=== PATIENT | female | born 2000 | race Two or more races ===

== ENCOUNTER 2021-03-24 19:11 | Emergency (ER) | payer OTHER | END 2021-03-24 21:15 | disposition home or self-care (01) | LOC: MW.ED 19:11 | DX: S20.212A Contusion of left front wall of thorax, initial encounter (principal); S80.01XA Contusion of right knee, initial encounter; S80.02XA Contusion of left knee, initial encounter; W01.0XXA Fall on same level from slipping, tripping and stumbling without subsequent striking against object, initial encounter; Y99.0 Civilian activity done for income or pay | CPT/HCPCS: 71100-26-LT; 71100-LT; 73562-26-RT; 73562-RT; 99282; 99283-25 ==

== ENCOUNTER 2021-11-10 17:42 | Emergency (ER) | payer SELFPAY ==
[2021-11-10] MEDS ORDERED: Sodium Chloride 0.9% 1,000 ML IV ONE (18:16)
[2021-11-10] MEDS ORDERED: Acetaminophen 500 MG Tab PO ONE (18:16)
[2021-11-10] MEDS ORDERED: Ketorolac 30 MG/ML SDV IVPUSH ONE (18:26)
[2021-11-10] MEDS ORDERED: Ondansetron 4 MG/2 ML SDV IVPUSH ONE (18:26)
[2021-11-10 19:00] LABS: POTASSIUM,K 3.6 mmol/L (3.5-5.1)
[2021-11-10] MEDS ORDERED: Penicillin G Benzathine 1,200,000 Units/2 ML Syringe IM ONE (19:02)
[2021-11-10 19:04] LABS: CORONAVIRUS COVID-19 NAA NEGATIVE (NEGATIVE); INFLUENZA A NAA NEGATIVE (NEGATIVE); INFLUENZA B NAA NEGATIVE (NEGATIVE)
== END 2021-11-10 19:47 | disposition home or self-care (01) ==
LOC: MW.ED 17:42
DX: J02.0 Streptococcal pharyngitis (principal); Z20.822 Contact with and (suspected) exposure to COVID-19
CPT/HCPCS: 0240U; 36415; 80053; 83605; 85025; 87651; 96361; 96374; 96375; 99283; A9270; J1885; J2405; J7030

== ENCOUNTER 2022-11-16 05:40 | Emergency (ER) | payer SELFPAY ==
[2022-11-16] MEDS ORDERED: Acetaminophen 500 MG Tab PO ONE (06:54)
== END 2022-11-16 08:45 | disposition home or self-care (01) ==
LOC: MW.ED 05:40
DX: J02.0 Streptococcal pharyngitis (principal); U07.1 COVID-19
CPT/HCPCS: 87635; 87651; 99283; A9270; U0002

== ENCOUNTER 2023-03-13 11:24 | Emergency (ER) | payer OTHER ==
[2023-03-13] MEDS ORDERED: Ibuprofen 600 MG Tab PO ONE (12:33)
== END 2023-03-13 12:54 | disposition home or self-care (01) ==
LOC: MW.ED 11:24
DX: S97.112A Crushing injury of left great toe, initial encounter (principal); W23.0XXA Caught, crushed, jammed, or pinched between moving objects, initial encounter; Y99.0 Civilian activity done for income or pay
CPT/HCPCS: 73610; 73620; 99283; A9270

== ENCOUNTER 2023-08-05 18:07 | Emergency (ER) | payer OTHER ==
[2023-08-05] MEDS: oxyCODONE 5 MG Tab PO STA (20:22)
[2023-08-05] MEDS: Acetaminophen 500 MG Tab PO STA (20:22)
[2023-08-05] MEDS: Ibuprofen 800 MG Tab PO STA (20:22)
== END 2023-08-05 21:25 | disposition home or self-care (01) ==
LOC: MW.ED 18:07
DX: S92.314A Nondisplaced fracture of first metatarsal bone, right foot, initial encounter for closed fracture (principal); S92.324A Nondisplaced fracture of second metatarsal bone, right foot, initial encounter for closed fracture; Z75.8 Other problems related to medical facilities and other health care; W20.8XXA Other cause of strike by thrown, projected or falling object, initial encounter; Y99.0 Civilian activity done for income or pay
CPT/HCPCS: 29515; 73630; 99283; A9270

== ENCOUNTER 2024-01-20 22:34 | Emergency (ER) | payer SELFPAY ==
[2024-01-21 00:01] LABS: APPEARANCE,URINE CLEAR; BILIRUBIN,URINE NEGATIVE (NEGATIVE); COLOR,URINE YELLOW; GLUCOSE,URINE NEGATIVE (NEGATIVE); KETONES,URINE NEGATIVE (NEGATIVE); LEUKOCYTE ESTERASE,URINE SMALL (NEGATIVE); NITRITE,URINE NEGATIVE (NEGATIVE); OCCULT BLOOD,URINE NEGATIVE (NEGATIVE); PROTEIN,URINE NEGATIVE (NEGATIVE); UROBILINOGEN,URINE 0.2 EU/dL (<2.0)
[2024-01-21 00:15] LABS: BACTERIA,URINE FEW (NEGATIVE); EPITHELIAL CELLS,URINE RARE (NONE-FEW); RBC,URINE 0-2 (0-2/HPF); WBC,URINE NONE SEEN (0-5/HPF)
[2024-01-21] MEDS: Ketorolac 30 MG/ML SDV IM ONE (00:40)
[2024-01-21] MEDS: Ondansetron 4 MG Tab.DIS PO ONE (00:42)
== END 2024-01-21 02:30 | disposition home or self-care (01) ==
LOC: MW.ED 22:34
DX: K59.00 Constipation, unspecified (principal); Z86.16 Personal history of COVID-19
CPT/HCPCS: 74018; 81001; 81025; 87086; 96372; 99284; A9270; J1885

== ENCOUNTER → 2024-08-28 | Day surgery (SDC) | payer BC ==
[~2024-08-28] MED LIST: Lidocaine 2% 11 ML Jelly Filled Syringe ONE; Ondansetron 4 MG/2 ML SDV IVPUSH PRN; Propofol 200 MG/20 ML SDV ONE; Ropivacaine 0.5% 5 MG/ML 30 ML SDV ONE; dexmedeTOMIDine HCl 200 MCG/2 ML SDV ONE; fentaNYL 250 MCG/5 ML SDV ONE; propofoL 500 MG/50 ML 50 ML ONE
[2024-08-28 10:14] LABS: BASOPHILS ABSOLUTE AUTO 0.04 K/uL (0.00-0.20); BASOPHILS PERCENT AUTO 0.7 % (0.0-1.0); EOSINOPHILS ABSOLUTE AUTO 0.11 K/uL (0.00-0.45); EOSINOPHILS PERCENT AUTO 1.8 % (0.0-6.0); IMMATURE GRAN ABSOLUTE AUTO 0.00 K/uL (0.00-0.05); IMMATURE GRAN PERCENT AUTO 0.0 % (0.0-0.4); LYMPHOCYTES ABSOLUTE AUTO 2.00 K/uL (1.00-4.80); LYMPHOCYTES PERCENT AUTO 33.6 % (24.0-44.0); MEAN PLATELET VOLUME 9.9 fL (9.4-12.3); MONOCYTES ABSOLUTE AUTO 0.38 K/uL (0.00-0.80); MONOCYTES PERCENT AUTO 6.4 % (0.0-8.0); NEUTROPHILS ABSOLUTE AUTO 3.42 K/uL (1.80-7.70); NEUTROPHILS PERCENT AUTO 57.5 % (41.0-71.0); NRBC ABSOLUTE 0.00 K/uL (0.00-0.02); NRBC PERCENT 0.0 /100WBC (0.0-0.2); PLATELET COUNT,PLT 335 K/uL (150-400); RED BLOOD CELL COUNT 4.43 M/uL (4.10-5.30); WHITE BLOOD CELL COUNT,WBC 5.95 K/uL (3.9-11.3)
[2024-08-28 10:30] LABS: A/G RATIO 1.2 (0.9-1.6); ALANINE AMINOTRANSFERASE,ALT 22.0 IU/L (14-63); ASPARTATE AMNIOTRANSFERASE,AST 23.0 IU/L (15-37); BILIRUBIN TOTAL 0.3 mg/dL (0.2-1.0); BLOOD UREA NITROGEN,BUN 13.0 mg/dL (7.0-18.0); CARBON DIOXIDE,CO2 26.0 mmol/L (21.0-32.0); CHLORIDE,CL 104.0 mmol/L (98-107); CREATININE 0.8 mg/dL (0.6-1.0); EST CRCL DRUG DOSING (CG) 105.6 mL/min; GLUCOSE RANDOM 97.0 mg/dL (74-106); POTASSIUM,K 3.8 mmol/L (3.5-5.1); PROTEIN TOTAL,TP 7.8 g/dL (6.4-8.2); SODIUM,NA 138.0 mmol/L (136-145)
[2024-08-28 10:32] LABS: ESTIMATED GFR 105.0 mL/min (>60)
[2024-08-28 10:37] LABS: APPEARANCE,URINE SLT CLOUDY; GLUCOSE,URINE NEGATIVE (NEGATIVE); OCCULT BLOOD,URINE NEGATIVE (NEGATIVE)
[2024-08-28] MEDS: Iopamidol 755 MG/ML 500 ML Multipack Bottle IVPUSH STA (12:11)
[2024-08-28] MEDS: Sodium Chloride 0.9% 2.5 ML Syringe FLUSH PRN (13:28)
[2024-08-28] MEDS: Sodium Chloride 0.9% 10 ML Syringe FLUSH PRN (13:28)
[2024-08-28] MEDS: Lactated Ringers 1,000 ML IV SCH (13:32)
[2024-08-28] MEDS: diphenhydrAMINE 50 MG/ML SDV IVPUSH ONE (14:16)
[2024-08-28] MEDS: metroNIDAZOLE/Normal Saline 500 MG in Premix Bag 1 BAG IV ONE (16:21)
[2024-08-28] MEDS: Acetaminophen/oxyCODONE 325-5 MG Tab PO PRN (22:17)
== END ==
LOC: MW.ED 09:39 → MW.SDS 13:38 → MW.MS 13:41 → UNDOADMIN 13:41 → UNDODISIN 08-29 10:00
PROVIDERS: ATTEND Surgery
DX: K35.80 Unspecified acute appendicitis (principal); Z88.1 Allergy status to other antibiotic agents; Z88.8 Allergy status to other drugs, medicaments and biological substances
CPT/HCPCS: 36415; 44970; 74177; 80053; 81003; 83690; 83735; 84703; 85025; A9270; J0665; J1171; J1200; J1308; J1836; J2543; J2704; J2795; J3010; J7030; J7120; Q9967; 00840; 64486; J3490

== ENCOUNTER 2024-09-07 09:32 | Emergency (ER) | payer BC ==
[2024-09-07 10:40] LABS: BASOPHILS ABSOLUTE AUTO 0.04 K/uL (0.00-0.20); BASOPHILS PERCENT AUTO 0.7 % (0.0-1.0); EOSINOPHILS ABSOLUTE AUTO 0.13 K/uL (0.00-0.45); EOSINOPHILS PERCENT AUTO 2.2 % (0.0-6.0); IMMATURE GRAN ABSOLUTE AUTO 0.02 K/uL (0.00-0.05); IMMATURE GRAN PERCENT AUTO 0.3 % (0.0-0.4); LYMPHOCYTES ABSOLUTE AUTO 1.96 K/uL (1.00-4.80); LYMPHOCYTES PERCENT AUTO 33.3 % (24.0-44.0); MEAN PLATELET VOLUME 10.1 fL (9.4-12.3); MONOCYTES ABSOLUTE AUTO 0.35 K/uL (0.00-0.80); MONOCYTES PERCENT AUTO 5.9 % (0.0-8.0); NEUTROPHILS ABSOLUTE AUTO 3.39 K/uL (1.80-7.70); NEUTROPHILS PERCENT AUTO 57.6 % (41.0-71.0); NRBC ABSOLUTE 0.00 K/uL (0.00-0.02); NRBC PERCENT 0.0 /100WBC (0.0-0.2); PLATELET COUNT,PLT 335 K/uL (150-400); RED BLOOD CELL COUNT 4.24 M/uL (4.10-5.30); WHITE BLOOD CELL COUNT,WBC 5.89 K/uL (3.9-11.3)
[2024-09-07 11:07] LABS: A/G RATIO 1.1 (0.9-1.6); ALANINE AMINOTRANSFERASE,ALT 30.0 IU/L (14-63); ASPARTATE AMNIOTRANSFERASE,AST 16.0 IU/L (15-37); BILIRUBIN TOTAL 0.4 mg/dL (0.2-1.0); BLOOD UREA NITROGEN,BUN 14.0 mg/dL (7.0-18.0); CARBON DIOXIDE,CO2 27.9 mmol/L (21.0-32.0); CHLORIDE,CL 105.0 mmol/L (98-107); CREATININE 0.7 mg/dL (0.6-1.0); EST CRCL DRUG DOSING (CG) 119.8 mL/min; GLUCOSE RANDOM 74.0 mg/dL (74-106); POTASSIUM,K 4.2 mmol/L (3.5-5.1); PROTEIN TOTAL,TP 7.6 g/dL (6.4-8.2); SODIUM,NA 141.0 mmol/L (136-145)
[2024-09-07 11:15] LABS: ESTIMATED GFR 124.0 mL/min (>60)
[2024-09-07 11:50] LABS: GLUCOSE,URINE NEGATIVE (NEGATIVE); OCCULT BLOOD,URINE NEGATIVE (NEGATIVE)
[2024-09-07 11:51] LABS: APPEARANCE,URINE SLT CLOUDY
[2024-09-07] MEDS: Iopamidol 755 MG/ML 500 ML Multipack Bottle IVPUSH STA (12:02)
[2024-09-07 12:12] LABS: EPITHELIAL CELLS,URINE RARE (NONE-FEW)
== END 2024-09-07 13:17 | disposition home or self-care (01) ==
LOC: MW.ED 09:32
DX: G89.18 Other acute postprocedural pain (principal); Z75.3 Unavailability and inaccessibility of health-care facilities; Z88.8 Allergy status to other drugs, medicaments and biological substances; Z90.49 Acquired absence of other specified parts of digestive tract
CPT/HCPCS: 36415; 74177; 80053; 81001; 84703; 85025; 99284; Q9967; 99283